=== PATIENT | male | born 1990 | race African-American/Black ===

== ENCOUNTER 2017-04-28 17:11 | Emergency (ER) | payer SELFPAY ==
[~2017-04-28] VITALS: Ht 167.6 cm; Wt 80.0 kg
[~2017-04-28 17:11] MED LIST: PREV30CA36 PO; Z.0.NO CURRENT MEDS
[2017-04-28 17:12] VITALS: BP 146/92; PULSE 77; RESP 14; TEMP 98.4; O2SAT 98
[2017-04-28] MEDS ORDERED: BACT800T5 PO (20:41)
--- NOTE | 2017-04-28 20:45 | PD ---
HPI Chief Complaint: ENT Complaint Time Seen by Provider: 20:39 Travel History International Travel<30 days: No Contact w/Intl Traveler<30days: No Traveled to known affect area: No History of Present Illness HPI 27 rib black male presents to emergency Department with complaints of a pimple in his left nostril for the past month. It has now become increasing painful started draining. Symptoms are mild. He denies any fever chills. No sore throat, ear pain, cough or congestion. PFSH Past Medical History Medical History: Denies Significant Hx Tetanus Vaccination: < 5 Years Past Surgical History Surgical History: No Previous Surgery Social History Alcohol Use: No Tobacco Use: No Substance Use: Yes (MARIJUANA DAILY) Allergies-Medications (Allergen,Severity, Reaction): Coded Allergies: No Known Allergies (Verified Allergy, Mild, 03/20/08) Reported Meds & Prescriptions Reported Meds & Active Scripts Active Bactrim DS (Sulfamethoxazole-Trimethoprim) 800-160 Mg Tab 1 Tab PO BID Prevacid (Lansoprazole) 30 Mg Capcr 30 Mg PO DAILY Reported No Current Meds (Miscellaneous Medication) Misc Review of Systems Except as stated in HPI: all other systems reviewed are Neg General / Constitutional: No: Fever, Chills Eyes: No: Blurred Vision, Photophobia HENT: No: Nosebleed, Neck Pain, Earache Cardiovascular: No: Chest Pain or Discomfort, Palpitations Respiratory: No: Cough, Shortness of Breath Gastrointestinal: No: Nausea, Vomiting Physical Exam Narrative GENERAL: Well-developed, well-nourished in no acute distress. Nontoxic appearing. HEAD: Normocephalic, atraumatic. EYES: Pupils equal round and reactive. Extraocular motions intact. No scleral icterus. No injection or drainage. ENT: TMs clear without erythema. The external auditory canals clear. Nose: Patient has a small open blister lesion to the left nostril. Posterior pharynx is pink and moist. No tonsillar edema or exudate. Uvula midline. Airway patent. NECK: Trachea midline.Supple, nontender, moves head freely. No central bony tenderness or spasm. CARDIOVASCULAR: Regular rate and rhythm without murmurs, gallops, or rubs. RESPIRATORY: Clear to auscultation. Breath sounds equal bilaterally. No wheezes , rales, or rhonchi. GASTROINTESTINAL: Abdomen soft, non-tender, nondistended. No hepato-splenomegaly , or palpable masses. No guarding. EXTREMITIES: No clubbing, cyanosis, or edema. No joint tenderness, effusion, or edema noted. BACK: Nontender without deformity or crepitance. No flank tenderness. Data Data Last Documented VS Vital Signs Date Time Temp Pulse Resp B/P (MAP) Pulse Ox O2 Delivery O2 Flow Rate FiO2 04/28/17 17:12 98.4 77 14 146/92 (110) 98 Orders Orders Ed Discharge Order (04/28/17 20:42) MDM Medical Decision Making Medical Screen Exam Complete: Yes Emergency Medical Condition: Yes Medical Record Reviewed: Yes Differential Diagnosis MDM: High Differential diagnoses: Abscess, folliculitis, cellulitis, lymphangitis, abrasion, contact dermatitis Narrative Course This is a superficial abscess left nostril Diagnosis Primary Impression: left nostril abscess Patient Instructions: General Instructions Additional Instructions: Rest. Elevation. keep clean and dry. Neosporin on Q-tips in the nose. Three Advil every 6 hours. Bactrim DS. Follow-up with a primary care doctor in one week. Return to the ER for any problems. Med/Other Pt SpecificInfo: Prescription(s) given Scripts Sulfamethoxazole-Trimethoprim (Bactrim DS) 800-160 Mg Tab 1 TAB PO BID for Infection, #20 TAB 0 Refills Prov: Kim Yeung MD 04/28/17 Disposition: 01 DISCHARGE HOME Condition: Stable J Luis Horan Apr 28, 2017 20:45
== END 2017-04-28 21:01 | disposition home or self-care (01) ==
LOC: NEPK 17:11
DX: J34.0 Abscess, furuncle and carbuncle of nose (principal)
CPT/HCPCS: 99283

== ENCOUNTER 2018-06-14 06:55 | Observation (INO) ==
[2018-06-14 07:06] VITALS: RESP 16; TEMP 98.3
--- NOTE | 2018-06-14 10:43 | ED ---
HPI General Chief Complaint: Syncope Stated Complaint: Medical Time Seen by Provider: 06/14/18 10:29 Source: patient Mode of arrival: ambulatory Limitations: no limitations History of Present Illness HPI narrative: Patient is a 28-year-old male is here today for syncopal episode last night. He states last evening he was sleeping on the couch and his girlfriend woke him up he got up went upstairs went to urinate and states he has syncopal episode while urinating. States he got suddenly dizzy and he passed out and hit the right side of his forehead on the sink and the rest of his head on the floor, and reports that the fall actually woke him up so he did not actually lose consciousness for more than 1-2 seconds. He proceeded to get up to go get into bed and fell asleep until this morning when he got up he realized he should probably get checked out as this is "not normal". He states that he feels okay today he does have a headache and pain on his right cheek he denies any confusion, slurred speech, difficulty ambulating, etc. He also reports intermittent chest tightness x 2 years that he has had ekg's for but has been discharged home. He has not followed up with cardiology. He denies any medication use he does smoke marijuana he said he did smoke yesterday but it was several hours prior to the syncopal episode he was not drinking alcohol at the time either. He does smoke cigarettes as well. MD complaint: Reports loss of consciousness Onset (ago): hour(s) -: second(s) Description of event: Reports other (Pt woke up and got in to bed) Prodromal symptoms: Reports lightheaded Witnessed: no Context: Reports after urination and illicit drug use ((+) THC USE) Injuries sustained associated with event: Reports face and head Current symptoms: Reports back to baseline History: Denies seizure disorder, previous syncopal episode, seizure disorder, history of CAD, pacemaker, AICD and family history of sudden Related Data Home Medications Medication Instructions Recorded Confirmed No Known Home Medications 06/14/18 06/14/18 Allergies Allergy/AdvReac Type Severity Reaction Status Date / Time No Known Allergies Allergy Verified 06/14/18 10:55 Review of Systems ROS: all other systems reviewed are negative [facility] Social History Social History Substance History: No History of Abuse Second Hand Smoke Exposure: No Smoking Status: Never smoker How Often Do You Have a Drink Containing Alcohol: Monthly or less Recent Travel in [facility] within the Last 8 Weeks: No Recent Out of Country Travel within the Last 8 Weeks: No Exam Narrative Exam Narrative: GENERAL: Pt awake, alert, oriented, no acute distress. He is appropriate and following directions. SKIN: Focused skin assessment warm/dry. Superficial abrasion/lac to R side of forehead, approx 1.5 cm in length. HEAD: Atraumatic. Normocephalic. EYES: Pupils equal and round. No scleral icterus. No injection or drainage. ENT: No nasal bleeding or discharge. Mucous membranes pink and moist. R ear with impacted cerumen. L ear TM pearly pink, no effusion, no erythema. NECK: Trachea midline. No JVD. CARDIOVASCULAR: Regular rate and rhythm. No murmur appreciated. RESPIRATORY: No accessory muscle use. Clear to auscultation. Breath sounds equal bilaterally. GASTROINTESTINAL: Abdomen soft, non-tender, nondistended. Hepatic and splenic margins not palpable. (+) bowel sounds all 4 quadrants. MUSCULOSKELETAL: No obvious deformities. No clubbing. No cyanosis. No edema. NEUROLOGICAL: Awake and alert. No obvious cranial nerve deficits. Motor grossly within normal limits. Normal speech. PSYCHIATRIC: Appropriate mood and affect; insight and judgment normal. Course Initial Documented Vital Signs Temperature 98.3 F 06/14/18 07:05 Pulse Rate 61 06/14/18 07:05 Respiratory Rate 16 06/14/18 07:05 Blood Pressure 140/95 H 06/14/18 07:05 Pulse Oximetry 100 06/14/18 07:05 Last Documented Vital Signs Temperature 98.3 F 06/14/18 07:05 Pulse Rate 54 L 06/14/18 16:53 Respiratory Rate 16 06/14/18 16:53 Blood Pressure 127/72 06/14/18 16:53 Pulse Oximetry 98 06/14/18 16:53 Medical Decision Making EJ Attestation EJ supervised visit: Yes Attestation: Please see mid-level provider note for full history and physical. Briefly this is a 28-year-old male who presents to the emergency department complaining of a syncopal episode last night. States that he did hit his head and a syncopal episode lasted seconds in duration. He currently feels okay and denies having these symptoms previously. He is reporting that his chest "feels funny." And also states that for the past few months he has had chest pain and shortness of breath. Family history of hypertension and he does smoke marijuana use marijuana yesterday before the symptoms began. He is slightly hypertensive on exam at 140/95, remaining vital signs stable. Head CT, chest x- ray, EKG, coags and d-dimer, troponin, orthostatic blood pressures ordered. Please see mid-level provider note for final disposition. 1700: Discussed with case finisher to transfer to [facility]. MDM Narrative Medical decision making narrative: Medical decision making narrative: During the course of the patients emergency department visit, the patients history, examination, and differential diagnosis were reviewed with the patient. The patient was placed on a color television console monitor with oximetry and frequent blood pressure monitoring. The patient was initially provided labs, iv access, ct brain and facial bones, d dimer, troponin, inr, orthostatic bp. EKG done and showing SB at a rate of 53 , no significant ST elevations or inversions. The patients laboratory studies were reviewed and remarkable for negative CBC, negative UA, mild decrease in sodium at 135, KCl of 5.4 which was rechecked and was 4.1 upon recheck. D-dimer was negative. Orthostatic bps are- 140/85 lying, 136/82 sitting, and 136/78 standing. Radiology studies were reviewed and remarkable for negative CT brain negative chest x-ray negative CT facial bones.. I discussed this with patient he is agreeable to admission for ready cardia and syncope and his heart rate has been 46-67 beats per minute. I called [facility] spoke with Dr. Briggs, who agreed to accept the patient for observation with diagnosis of sinus bradycardia with syncope. Discussed with patient he is okay with this he is awake alert oriented denies any chest pain at this time denies any dizziness. He sitting comfortably in bed eating fast food with his girlfriend, no acute distress. Medical Screen Exam Complete: Yes Emergency Medical Condition: Yes Medical Screen Exam Complete: Yes Emergency Medical Condition: Yes Differential Diagnosis Differential Diagnosis: syncope, bradycardia, seizure, adverse effects of THC, hypoglycemia, dehydration Lab Data Result diagrams: 06/14/18 11:05 06/14/18 12:42 Lab Results 11/27/18 11/27/18 11/27/18 Range/Units 11:05 11:05 11:05 WBC 6.9 (4.0-11.0) th/mm3 RBC 5.72 (4.50-5.90) mil/mm3 Hgb 15.1 (13.0-17.0) gm/dL Hct 46.0 (39.0-51.0) % MCV 80.5 (80.0-100.0) fL MCH 26.4 L (27.0-34.0) pg MCHC 32.8 (32.0-36.0) % RDW 15.6 (11.6-17.2) % Plt Count 242 (150-450) th/mm3 MPV 9.1 (7.0-11.0) fL Neut % (Auto) 57.1 (16.0-70.0) % Lymph % (Auto) 34.8 (9.0-44.0) % Trinity % (Auto) 6.1 (0.0-8.0) % Eos % (Auto) 1.6 (0.0-4.0) % Baso % (Auto) 0.4 (0.0-2.0) % Neut # (Auto) 3.9 (1.8-7.7) th/mm3 Lymph # (Auto) 2.4 (1.0-4.8) th/mm3 Trinity # (Auto) 0.4 (0.0-0.9) th/mm3 Eos # (Auto) 0.1 (0.0-0.4) th/mm3 Baso # (Auto) 0.0 (0.0-0.2) th/mm3 WBC Differential . Differential Comment Auto diff final PT (9.8-11.6) sec INR Ratio D-Dimer Quant (PE/DVT) Sodium 135 L (136-145) meq/L Potassium 5.4 H (3.5-5.1) meq/L Chloride 107 (98-107) meq/L Carbon Dioxide 24.5 (21.0-32.0) meq/L Anion Gap 4 L (5-15) meq/L BUN 12 (7-18) mg/dL Creatinine 1.10 (0.60-1.30) mg/dL Estimated GFR Greater than 89 (>89) mL/min Random Glucose 80 (74-106) mg/dL Calcium 8.9 (8.5-10.1) mg/dL Magnesium 2.0 (1.5-2.5) mg/dL Troponin I Less than 0.02 L (0.02-0.05) ng/mL Urine Color (Yellw/Straw) Urine Clarity (Clear) Urine pH (5.0-8.5) Ur Specific [place] (1.002-1.035) Urine Protein (Neg-Trace) mg/dL Urine Glucose (UA) (Negative) mg/dL Urine Ketones (Negative) mg/dL Urine Occult Blood (Negative) Urine Nitrate (Negative) Urine Bilirubin (Negative) Urine Urobilinogen (Less than 2) mg/dL Ur Leukocyte Esterase (Negative) Urine RBC (0-3) /hpf Urine WBC (0-5) /hpf Urine Mucus (Occasional) /lpf Micro UA Comment Ur Microscopic Review Urine Culture Comments Urine Opiates Screen (Neg) Ur Barbiturates Screen (Neg) Ur Amphetamines Screen (Neg) U Benzodiazepines Scrn (Neg) Urine Cocaine Screen (Neg) U Cannabinoids Screen (Neg) 06/14/18 06/14/18 06/14/18 Range/Units 11:10 11:10 12:04 WBC (4.0-11.0) th/mm3 RBC (4.50-5.90) mil/mm3 Hgb (13.0-17.0) gm/dL Hct (39.0-51.0) % MCV (80.0-100.0) fL MCH (27.0-34.0) pg MCHC (32.0-36.0) % RDW (11.6-17.2) % Plt Count (150-450) th/mm3 MPV (7.0-11.0) fL Neut % (Auto) (16.0-70.0) % Lymph % (Auto) (9.0-44.0) % Trinity % (Auto) (0.0-8.0) % Eos % (Auto) (0.0-4.0) % Baso % (Auto) (0.0-2.0) % Neut # (Auto) (1.8-7.7) th/mm3 Lymph # (Auto) (1.0-4.8) th/mm3 Trinity # (Auto) (0.0-0.9) th/mm3 Eos # (Auto) (0.0-0.4) th/mm3 Baso # (Auto) (0.0-0.2) th/mm3 WBC Differential Differential Comment PT (9.8-11.6) sec INR Ratio D-Dimer Quant (PE/DVT) Cancelled Sodium (136-145) meq/L Potassium (3.5-5.1) meq/L Chloride (98-107) meq/L Carbon Dioxide (21.0-32.0) meq/L Anion Gap (5-15) meq/L BUN (7-18) mg/dL Creatinine (0.60-1.30) mg/dL Estimated GFR (>89) mL/min Random Glucose (74-106) mg/dL Calcium (8.5-10.1) mg/dL Magnesium (1.5-2.5) mg/dL Troponin I (0.02-0.05) ng/mL Urine Color Yellow (Yellw/Straw) Urine Clarity Clear (Clear) Urine pH 7.0 (5.0-8.5) Ur Specific [place] 1.019 (1.002-1.035) Urine Protein Negative (Neg-Trace) mg/dL Urine Glucose (UA) Negative (Negative) mg/dL Urine Ketones Negative (Negative) mg/dL Urine Occult Blood Negative (Negative) Urine Nitrate Negative (Negative) Urine Bilirubin Negative (Negative) Urine Urobilinogen Less than 2 (Less than 2) mg/dL Ur Leukocyte Esterase Negative (Negative) Urine RBC Less than 1 (0-3) /hpf Urine WBC 1 (0-5) /hpf Urine Mucus Few H (Occasional) /lpf Micro UA Comment Culture not ind Ur Microscopic Review Not Reportable Urine Culture Comments Culture not ind Urine Opiates Screen Neg (Neg) Ur Barbiturates Screen Neg (Neg) Ur Amphetamines Screen Neg (Neg) U Benzodiazepines Scrn Neg (Neg) Urine Cocaine Screen Neg (Neg) U Cannabinoids Screen Pos H (Neg) 06/14/18 06/14/18 Range/Units 12:04 12:42 WBC (4.0-11.0) th/mm3 RBC (4.50-5.90) mil/mm3 Hgb (13.0-17.0) gm/dL Hct (39.0-51.0) % MCV (80.0-100.0) fL MCH (27.0-34.0) pg MCHC (32.0-36.0) % RDW (11.6-17.2) % Plt Count (150-450) th/mm3 MPV (7.0-11.0) fL Neut % (Auto) (16.0-70.0) % Lymph % (Auto) (9.0-44.0) % Trinity % (Auto) (0.0-8.0) % Eos % (Auto) (0.0-4.0) % Baso % (Auto) (0.0-2.0) % Neut # (Auto) (1.8-7.7) th/mm3 Lymph # (Auto) (1.0-4.8) th/mm3 Trinity # (Auto) (0.0-0.9) th/mm3 Eos # (Auto) (0.0-0.4) th/mm3 Baso # (Auto) (0.0-0.2) th/mm3 WBC Differential Differential Comment PT 11.0 (9.8-11.6) sec INR 1.1 Ratio D-Dimer Quant (PE/DVT) 0.34 Sodium (136-145) meq/L Potassium 4.1 D (3.5-5.1) meq/L Chloride (98-107) meq/L Carbon Dioxide (21.0-32.0) meq/L Anion Gap (5-15) meq/L BUN (7-18) mg/dL Creatinine (0.60-1.30) mg/dL Estimated GFR (>89) mL/min Random Glucose (74-106) mg/dL Calcium (8.5-10.1) mg/dL Magnesium (1.5-2.5) mg/dL Troponin I (0.02-0.05) ng/mL Urine Color (Yellw/Straw) Urine Clarity (Clear) Urine pH (5.0-8.5) Ur Specific [place] (1.002-1.035) Urine Protein (Neg-Trace) mg/dL Urine Glucose (UA) (Negative) mg/dL Urine Ketones (Negative) mg/dL Urine Occult Blood (Negative) Urine Nitrate (Negative) Urine Bilirubin (Negative) Urine Urobilinogen (Less than 2) mg/dL Ur Leukocyte Esterase (Negative) Urine RBC (0-3) /hpf Urine WBC (0-5) /hpf Urine Mucus (Occasional) /lpf Micro UA Comment Ur Microscopic Review Urine Culture Comments Urine Opiates Screen (Neg) Ur Barbiturates Screen (Neg) Ur Amphetamines Screen (Neg) U Benzodiazepines Scrn (Neg) Urine Cocaine Screen (Neg) U Cannabinoids Screen (Neg) Imaging Data Radiologist's impression: Chest X-Ray 06/14/18 10:43 CONCLUSION: Negative examination. Face CT 06/14/18 10:43 CONCLUSION: Negative CT Facial Bones non contrast. Head CT 06/14/18 10:43 CONCLUSION: 1. Negative CT Head non contrast. Discharge Plan Discharge Disposition Patient Disposition: 30 Still Patient Discharge Condition Condition: Stable Discharge Order Discharge Orders: AMA Discharge (Routine); Ordered 06/14/18 Ordered By: Mary Castaneda Physicians Team ED Provider: Mary Castaneda ED Midlevel Provider: Diamond Durand Primary Care Provider: Primary Care Bailey Garcia Attending Provider: Greg Briggs Status ED Status: Left Department Discharge Information Discharge Date/Time: 06/14/18 17:45
[2018-06-14 11:22] LABS: Baso % (Auto) 0.4 % (0.0-2.0); Eos # (Auto) 0.1 th/mm3 (0.0-0.4); Eos % (Auto) 1.6 % (0.0-4.0); Hemoglobin 15.1 gm/dL (13.0-17.0); Lymph # (Auto) 2.4 th/mm3 (1.0-4.8); Lymph % (Auto) 34.8 % (9.0-44.0); Mean Corpuscular HGB Conc 32.8 % (32.0-36.0); Mean Corpuscular Hemoglobin 26.4 pg (27.0-34.0); Mean Corpuscular Volume 80.5 fL (80.0-100.0); Mean Platelet Volume 9.1 fL (7.0-11.0); Mono # (Auto) 0.4 th/mm3 (0.0-0.9); Mono % (Auto) 6.1 % (0.0-8.0); Neut # (Auto) 3.9 th/mm3 (1.8-7.7); Neut % (Auto) 57.1 % (16.0-70.0); Platelet Count 242 th/mm3 (150-450); Red Blood Count 5.72 mil/mm3 (4.50-5.90); Red Cell Distribution Width 15.6 % (11.6-17.2); White Blood Count 6.9 th/mm3 (4.0-11.0)
--- NOTE | 2018-06-14 11:31 | XR ---
EXAM DATE: 06/14/2018 11:24 AM EST AGE/SEX: 28 years / Male INDICATIONS: . Chest pain and shortness of breath since last night. CLINICAL DATA: This is the patient's initial encounter. Patient reports that signs and symptoms have been present for 1 day and indicates a pain score of 3/10. MEDICAL/SURGICAL HISTORY: None. None. COMPARISON: No prior exams available for comparison. FINDINGS: PA and lateral views of the chest demonstrate the lungs to be symmetrically aerated without evidence of mass, infiltrate or effusion. The cardiomediastinal contours are unremarkable. Osseous structures are intact. CONCLUSION: Negative examination. Electronically signed by: Cruzito Moreno MD 06/14/2018 11:30 AM EST
--- NOTE | 2018-06-14 11:35 | CT ---
EXAM DATE: 06/14/2018 11:32 AM EST AGE/SEX: 28 years / Male INDICATIONS: Patient passed out last night and hit right forehead CLINICAL DATA: This is the patient's initial encounter. Patient reports that signs and symptoms have been present for 1 day and indicates a pain score of 2/10. MEDICAL/SURGICAL HISTORY: None. None. RADIATION DOSE: 37.71 CTDI (mGy) COMPARISON: No prior exams available for comparison. TECHNIQUE: CT of the head without contrast. Using automated exposure control and adjustment of the mA and/or kV according to patient size, radiation dose was kept as low as reasonably achievable to ob tain optimal diagnostic quality images. DICOM format image data is available electronically for revi ew and comparison. FINDINGS: Cerebrum: The ventricles are normal for age. No evidence of midline shift, mass lesion, hemorrhage or acute infarction. No extraaxial fluid collections are seen. Posterior Fossa: The cerebellum and brainstem are intact. The 4th ventricle is midline. The cerebe llopontine angle is unremarkable. Extracranial: The visualized portion of the orbits is intact. Skull: The calvaria is intact. No evidence of skull fracture. CONCLUSION: 1. Negative CT Head non contrast. Electronically signed by: Jag Oviedo MD 06/14/2018 11:34 AM EST
[2018-06-14 11:42] LABS: Bilirubin,Urine Negative (Negative); Clarity,Urine Clear (Clear); Color,Urine Yellow (Yellw/Straw); Glucose,Urine (UA) Negative (Negative); Leukocyte Esterase,Urine Negative (Negative); Mucus,Urine Few /lpf (Occasional); Nitrite,Urine Negative (Negative); Specific Gravity,Urine 1.019 (1.002-1.035)
--- NOTE | 2018-06-14 11:47 | CT ---
EXAM DATE: 06/14/2018 11:40 AM EST AGE/SEX: 28 years / Male INDICATIONS: Patient passed out last night and hit right forehead CLINICAL DATA: This is the patient's initial encounter. Patient reports that signs and symptoms have been present for 1 day and indicates a pain score of 2/10. MEDICAL/SURGICAL HISTORY: None. None. RADIATION DOSE: 61.86 CTDI (mGy) COMPARISON: No prior exams available for comparison. TECHNIQUE: Contiguous images in the axial and coronal planes were obtained using helical multirow de tector technique. Using automated exposure control and adjustment of the mA and/or kV according to p atient size, radiation dose was kept as low as reasonably achievable to obtain optimal diagnostic shiloh lity images. DICOM format image data is available electronically for review and comparison. FINDINGS: Orbits: The orbital and infraorbital osseous structures are intact. The retroconal structures have a normal configuration. No radiopaque foreign bodies are seen. Nasal Bone: The nasal bone and maxillary spine are intact. Zygomatic Arches: Symmetric without evidence of fracture. Sinuses: The maxillary, ethmoid, and frontal sinuses are intact. No air-fluid levels seen. Nasal Cavity: The nasal septum is intact and midline. The lacrimal ducts are intact. Soft Tissues: No radiopaque foreign bodies seen. Mild right frontal soft tissue swelling without rajendra dence of underlying fracture.. Intracranial: No intracranial air seen. Cribriform Plate: Grossly intact. CONCLUSION: Negative CT Facial Bones non contrast. Electronically signed by: Cruzito Moreno MD 06/14/2018 11:46 AM EST
[2018-06-14 12:12] LABS: Anion Gap 4 meq/L (5-15); Blood Urea Nitrogen 12 mg/dL (7-18); Calcium 8.9 mg/dL (8.5-10.1); Carbon Dioxide 24.5 meq/L (21.0-32.0); Chloride 107 meq/L (98-107); Glomerular Filtration Rate Greater Than 89 mL/min (>89); Glucose,Random 80 mg/dL (74-106); Sodium 135 meq/L (136-145)
[2018-06-14 12:15] LABS: Potassium 5.4 meq/L (3.5-5.1)
[2018-06-14 12:34] LABS: INR 1.1 Ratio
[2018-06-14 12:39] LABS: D-Dimer 0.34 mg/L FEU (0.00-0.50)
--- NOTE | 2018-06-14 13:55 | P.HPFP ---
History of Present Illness Primary Care Physician: No Primary Care Physician <PercymelvinaMiladisAshwin R - 06/16/18 12:58> No Primary Care Physician <Greg Briggs 06/14/18 13:55> History of Present Illness: He is a 28 year old male with no significant past medical history who presented with an episode of syncope. Kiefer lightheaded walking up the stairs, went to go urinate and passed out. He thinks it was only a couple seconds. He did hit his head. He reports he woke up immediately after hitting his head. He does not continue to have headaches, change in vision, lightheadedness or dizziness. He denies nausea, vomiting, fever, chills, left arm or jaw pain, back pain, shortness of breath, abdominal pain, change in bowel or bladder habits, weakness, numbness or tingling in arms or legs. He reports he has chest tightness all the time, throughout the day. He often has the feeling that his heart is beating to slow. This has been looked into, but he does not currently have a transport nurse. He does not have a PCP. Reports PO intake for the past couple of days. 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 no lightheadedness or dizziness at this point. no dysuria or increased frequency. No emesis or nausea Past Medical history: Reports chronic chest tightness for years, never diagnosed , has had negative workups in the past. Otherwise denies medical history Surgical history: Denies surgical history. Family History: No cardiac problems in the family. HTN in his mother Social: Occasional alcohol use, no tobacco use, daily MJ use, no history of IVDA <Greg Briggs - 06/14/18 16:54> - Diagnosis (1) Syncope <Ashwin Napoles Gualberto Cha 06/16/18 12:58> (1) Syncope <Greg Briggs 06/14/18 16:46> Review of Systems All other systems reviewed negative except as stated in HPI <Greg Briggs Starla 06/14/18 16:54> PMFSH - History History Provided By: Patient <Greg Briggs 06/14/18 13:55> - Medical History Medical History: Medical History (Last Reviewed 04/04/18 @ 01:41 by Nadeen Curry MD) Patient denies medical problems <PercyestellaAshwin taylor Starla 06/16/18 12:58> Medical History (Last Reviewed 04/04/18 @ 01:41 by Nadeen Curry MD) Patient denies medical problems <Greg Briggs - 06/14/18 13:55> - Surgical History Surgical History: Surgical History (Last Reviewed 04/04/18 @ 01:41 by Nadeen Curry MD) No history of previous surgery <PercymelvinaAshwin Gualberto Starla 06/16/18 12:58> Surgical History (Last Reviewed 04/04/18 @ 01:41 by Nadeen Curry MD) No history of previous surgery <MalakristaGreg Perez Starla 06/14/18 13:55> - Tobacco History Second Hand Smoke Exposure: No <MalakristaGreg Perez 06/14/18 13:55> Tobacco Use In Past 30 Days: No <MalakristaGreg Perez Starla 06/14/18 13:55> Smoking Status: Never smoker <BrigitteGreg Perez 06/14/18 13:55> - Alcohol History How Often Do You Have a Drink Containing Alcohol: Monthly or less <MalakristaGreg - 06/14/18 13:55> - Substance Use History Substance History: No History of Abuse <MalakristaGreg Perez - 06/14/18 13:55> - Travel History Recent Travel in the [facility] Within the Last 8 Weeks: No <MalakristaGreg Perez Starla 06/14 13:55> Recent Travel Out of the Country Within the Last 8 Weeks: No <MalakristaGreg Perez 06/14/18 13:55> - Immunization History Tetanus Immunization: <5 Years <MalakristaGreg Perez Starla 06/14/18 13:55> Medications and Allergies Allergies Allergy/AdvReac Type Severity Reaction Status Date / Time No Known Allergies Allergy Verified 06/14/18 10:55 <PercymelvinaAshwin Burciaga Starla 06/16/18 12:58> Home Medications Medication Instructions Recorded Confirmed Type No Known Home Medications 06/14/18 06/14/18 History <PercyAshwin hein 06/16/18 12:58> Active Medications: Active Medications Acetaminophen (Tylenol) 650 mg PO Q4H PRN PRN Reason: Temp > 100.4 Enoxaparin Sodium (Lovenox Inj) 30 mg SQ Q24H YURY Ondansetron HCl (Zofran Inj) 4 mg IV.PUSH Q6H PRN PRN Reason: NAUSEA OR VOMITING Sodium Chloride (Ns Flush) 2 ml IV.FLUSH BID YURY Sodium Chloride (Ns Flush) 2 ml IV.FLUSH PRN PRN PRN Reason: FLUSH AFTER USING IV ACCESS <Ashwin Napoles - 06/16/18 12:58> Exam Vital signs: Vital Signs 06/14/18 07:05 06/14/18 10:40 06/14/18 12:07 Temperature 98.3 F Pulse Rate 61 60 Respiratory Rate 16 16 Blood Pressure 140/95 H 127/61 Pulse Oximetry 100 100 100 06/14/18 12:08 06/14/18 13:35 Temperature Pulse Rate 52 L 52 L Respiratory Rate Blood Pressure Pulse Oximetry Intake & Output 06/13/18 06/14/18 06/14/18 18:59 06:59 18:59 Weight 74.843 kg <Greg Briggs 06/14/18 13:55> Narrative: GENERAL: Laying in bed, no acute distress SKIN: Warm and dry. HEAD: Atraumatic. Normocephalic. EYES: Pupils equal and round. No scleral icterus. No injection or drainage. ENT: No nasal bleeding or discharge. Mucous membranes pink and moist. NECK: Trachea midline. No JVD. CARDIOVASCULAR: Regular rate and rhythm. RESPIRATORY: No accessory muscle use. Clear to auscultation. Breath sounds equal bilaterally. GASTROINTESTINAL: Abdomen soft, non-tender, nondistended. Hepatic and splenic margins not palpable. MUSCULOSKELETAL: Extremities without clubbing, cyanosis, or edema. No obvious deformities. NEUROLOGICAL: Awake and alert. CN II through XII intact. Motor grossly within normal limits. Five out of 5 muscle strength in the arms and legs. Normal speech. <Greg Briggs 06/14/18 16:54> Results - Labs Result diagrams: 06/14/18 11:05 06/14/18 12:42 <Ashwin Napoles 06/16/18 12:58> Abnormal lab results 06/14/18 06/14/18 06/14/18 Range/Units 11:05 11:05 11:10 MCH 26.4 L (27.0-34.0) pg Sodium 135 L (136-145) meq/L Potassium 5.4 H (3.5-5.1) meq/L Anion Gap 4 L (5-15) meq/L Troponin I Less than 0.02 L (0.02-0.05) ng/mL Urine Mucus Few H (Occasional) /lpf Short CBC 06/14/18 Range/Units 11:05 WBC 6.9 (4.0-11.0) th/mm3 Hgb 15.1 (13.0-17.0) gm/dL Hct 46.0 (39.0-51.0) % Plt Count 242 (150-450) th/mm3 BMP 06/14/18 06/14/18 11:05 12:42 Sodium 135 L Potassium 5.4 H 4.1 D Chloride 107 Carbon Dioxide 24.5 BUN 12 Creatinine 1.10 Calcium 8.9 Cardiac Enzymes 06/14/18 Range/Units 11:05 Troponin I Less than 0.02 L (0.02-0.05) ng/mL Urine 06/14/18 Range/Units 11:10 Urine Color Yellow (Yellw/Straw) Urine Clarity Clear (Clear) Urine pH 7.0 (5.0-8.5) Ur Specific [place] 1.019 (1.002-1.035) Urine Protein Negative (Neg-Trace) mg/dL Urine Glucose (UA) Negative (Negative) mg/dL <Greg Briggs 06/14/18 13:55> - Imaging Impressions Chest X-Ray 06/14/18 10:43 CONCLUSION: Negative examination. Face CT 06/14/18 10:43 CONCLUSION: Negative CT Facial Bones non contrast. Head CT 06/14/18 10:43 CONCLUSION: 1. Negative CT Head non contrast. <Greg Briggs 06/14/18 13:55> Caprini VTE Risk Assessment Rasheedrini VTE Risk Assessment: No/Low Risk (score <= 1) <Greg Briggs 16:54> Will Risk Assessment Model: Point Value = 1 Point Value = 2 Point Value = 3 Point Value = 5 Age 41-60 Minor surgery BMI > 25 kg/m2 Swollen legs Varicose veins or History of unexplained or recurrent spontaneous Oral contraceptives or hormone replacement Sepsis (< 1 month) Serious lung disease, including pneumonia (< 1 month) Abnormal pulmonary function Acute myocardial infarction Congestive heart failure (< 1 month) History of inflammatory bowel disease Medical patient at bed rest Age 61-74 Arthroscopic surgery Major open surgery (> 45 min) Laparoscopic surgery (> 45 min) Malignancy Confined to bed (> 72 hours) Immobilizing plaster cast Central venous access Age >= 75 History of VTE Family history of VTE Factor V Leiden Prothrombin [id number] Lupus anticoagulant Anticardiolipin antibodies Elevated serum homocysteine Heparin-induced thrombocytopenia Other congenital or acquired thrombophilia Stroke (< 1 month) Elective arthroplasty Hip, pelvis, or leg fracture Acute spinal cord injury (< 1 month) <Ashwin Napoles - 06/16/18 12:58> Point Value = 1 Point Value = 2 Point Value = 3 Point Value = 5 Age 41-60 Minor surgery BMI > 25 kg/m2 Swollen legs Varicose veins or History of unexplained or recurrent spontaneous Oral contraceptives or hormone replacement Sepsis (< 1 month) Serious lung disease, including pneumonia (< 1 month) Abnormal pulmonary function Acute myocardial infarction Congestive heart failure (< 1 month) History of inflammatory bowel disease Medical patient at bed rest Age 61-74 Arthroscopic surgery Major open surgery (> 45 min) Laparoscopic surgery (> 45 min) Malignancy Confined to bed (> 72 hours) Immobilizing plaster cast Central venous access Age >= 75 History of VTE Family history of VTE Factor V Leiden Prothrombin [id number] Lupus anticoagulant Anticardiolipin antibodies Elevated serum homocysteine Heparin-induced thrombocytopenia Other congenital or acquired thrombophilia Stroke (< 1 month) Elective arthroplasty Hip, pelvis, or leg fracture Acute spinal cord injury (< 1 month) <Greg Briggs - 06/14/18 13:55> Prophylaxis Regimen: Total Risk Factor Score Risk Level Prophylaxis Regimen 0-1 Low Early ambulation 2 Moderate Order ONE of the following: *Sequential Compression Device (SCD) *Heparin 5000 units SQ BID 3-4 Higher Order ONE of the following medications: *Heparin 5000 units SQ TID *Enoxaparin/Lovenox 40 mg SQ daily (WT < 150 kg, CrCl > 30 mL/min) *Enoxaparin/Lovenox 30 mg SQ daily (WT < 150 kg, CrCl > 10-29 mL/min) *Enoxaparin/Lovenox 30 mg SQ BID (WT < 150 kg, CrCl > 30 mL/min) AND/OR *Sequential Compression Device (SCD) 5 or more Highest Order ONE of the following medications: *Heparin 5000 units SQ TID (Preferred with Epidurals) *Enoxaparin/Lovenox 40 mg SQ daily (WT < 150 kg, CrCl > 30 mL/min) *Enoxaparin/Lovenox 30 mg SQ daily (WT < 150 kg, CrCl > 10-29 mL/min) *Enoxaparin/Lovenox 30 mg SQ BID (WT < 150 kg, CrCl > 30 mL/min) AND *Sequential Compression Device (SCD) <Ashwin Napoles 06/16/18 12:58> Total Risk Factor Score Risk Level Prophylaxis Regimen 0-1 Low Early ambulation 2 Moderate Order ONE of the following: *Sequential Compression Device (SCD) *Heparin 5000 units SQ BID 3-4 Higher Order ONE of the following medications: *Heparin 5000 units SQ TID *Enoxaparin/Lovenox 40 mg SQ daily (WT < 150 kg, CrCl > 30 mL/min) *Enoxaparin/Lovenox 30 mg SQ daily (WT < 150 kg, CrCl > 10-29 mL/min) *Enoxaparin/Lovenox 30 mg SQ BID (WT < 150 kg, CrCl > 30 mL/min) AND/OR *Sequential Compression Device (SCD) 5 or more Highest Order ONE of the following medications: *Heparin 5000 units SQ TID (Preferred with Epidurals) *Enoxaparin/Lovenox 40 mg SQ daily (WT < 150 kg, CrCl > 30 mL/min) *Enoxaparin/Lovenox 30 mg SQ daily (WT < 150 kg, CrCl > 10-29 mL/min) *Enoxaparin/Lovenox 30 mg SQ BID (WT < 150 kg, CrCl > 30 mL/min) AND *Sequential Compression Device (SCD) <Greg Briggs 06/14/18 13:55> Assessment and Plan - Assessment (1) Syncope Code(s): R55 - Syncope and collapse Status: Acute <Ashwin Napoles 06/16/18 12:58> (1) Syncope Code(s): R55 - Syncope and collapse Status: Acute <Greg Briggs 06/14/18 16:46> - Assessment and Plan 28-year-old male with chronic chest tightness presenting status post syncope. Negative d-dimer, troponin. Patient was to be observed overnight to follow-up any potential cardiac abnormalities, however admitting team was called and notified the patient was being transferred to [facility] and has already been accepted by the hospitalist there. <Greg Briggs - 06/14/18 16:54> - Attending Attestation I agree with the plan of care as discussed with me and documented in the resident note. Ashwin Napoles MD <Ashwin Napoles - 06/16/18 12:58>
[2018-06-14] MEDS ORDERED: Acetaminophen 325 MG Tablet PO PRN (13:59)
[2018-06-14] MEDS ORDERED: Sod Chloride 0.9% Inj 1,000 ML IV.SIG SCH (14:01)
[2018-06-14 14:59] VITALS: O2SAT 98
[2018-06-14] MEDS ORDERED: Sodium Chloride 0.9% 2 ML Flush PRN IV.FLUSH (15:20)
[2018-06-14] MEDS ORDERED: Enoxaparin Inj 30 MG/0.3 ML Syringe SQ SCH (16:00)
[2018-06-14 16:54] VITALS: BP 127/72; PULSE 54
--- NOTE | 2018-06-14 19:54 | ECHRPT ---
Indication: SYNCOPE CONCLUSIONS Wall thickness is normal. Normal left ventricular size. The left ventricular systolic function is low normal with an estimated ejection fraction in the rang e of 50- 55%. The estimated pulmonary arterial pressure is 33 mmHg. There is mild tricuspid valve regurgitation. BP: / HR: Rhythm: MEASUREMENTS (Male / Female) Normal Values Technical Quality:Excellent 2D ECHO LV Diastolic Diameter PLAX 4.8 cm 4.2 - 5.9 / 3.9 - 5.3 cm LV Systolic Diameter PLAX 3.2 cm IVS Diastolic Thickness 0.9 cm 0.6 - 1.0 / 0.6 - 0.9 cm LVPW Diastolic Thickness 1.0 cm 0.6 - 1.0 / 0.6 - 0.9 cm LV Relative Wall Thickness 0.4 RV Internal Dim ED PLAX 2.2 cm LVOT Diameter 2.1 cm Aortic Root Diameter 2.7 cm LA Systolic Diameter LX 3.1 cm 3.0 - 4.0 / 2.7 - 3.8 cm LV Ejection Fraction MOD BP 53.9 % >= 55 % LV Ejection Fraction MOD 4C 59.5 % LV Ejection Fraction 4C AL 60.3 % LV Ejection Fraction MOD 2C 45.9 % LV Ejection Fraction 2C AL 47.3 % M-MODE Aortic Root Diameter MM 3.5 cm LA Systolic Diameter MM 3.7 cm LA Ao Ratio MM 1.1 AV Cusp Separation MM 1.9 cm DOPPLER AV Peak Velocity 115.0 cm/s AV Peak Gradient 5.3 mmHg LVOT Peak Velocity 82.9 cm/s LVOT Peak Gradient 2.7 mmHg AV Area Cont Eq pk 2.5 cm Mitral E Point Velocity 86.4 cm/s Mitral A Point Velocity 51.8 cm/s Mitral E to A Ratio 1.7 LV E' Lateral Velocity 12.3 cm/s Mitral E to LV E' Lateral Ratio 7.0 LV E' Septal Velocity 7.3 cm/s Mitral E to LV E' Septal Ratio 11.8 TR Peak Velocity 238.0 cm/s TR Peak Gradient 22.7 mmHg Right Atrial Pressure 10.0 mmHg Pulmonary Artery Systolic Pressu 32.7 mmHg Right Ventricular Systolic Press 32.7 mmHg PV Peak Velocity 97.7 cm/s PV Peak Gradient 3.8 mmHg FINDINGS LEFT VENTRICLE Wall thickness is normal. Normal left ventricular size. The left ventricular systolic function is low normal with an estimated ejection fraction in the rang e of 50- 55%. No regional wall motion abnormalities are present. RIGHT VENTRICLE Normal right ventricular size and systolic function. LEFT ATRIUM The left atrial size is normal. The left atrial appendage appears to be morphologically normal. RIGHT ATRIUM The right atrial size is normal. ATRIAL SEPTUM Normal atrial septal thickness without atrial level shunting by limited color doppler interrogation. AORTA The aortic root and proximal ascending aorta are normal in size on limited imaging. MITRAL VALVE Structurally normal mitral valve. No mitral valve stenosis or regurgitation. AORTIC VALVE Trileaflet aortic valve. No aortic valve stenosis or regurgitation. TRICUSPID VALVE The estimated pulmonary arterial pressure is 33 mmHg. There is mild tricuspid valve regurgitation. PULMONARY VALVE No pulmonary valve regurgitation or stenosis. VESSELS The inferior vena cava is normal in size. PERICARDIUM No pericardial effusion. Bill Santamaria (Electronically Signed) Final Date:14 June 2018 19:53
[2018-06-14] MEDS ORDERED: Sodium Chloride 0.9% 2 ML Flush BID IV.FLUSH SCH (21:00)
[2018-06-14 23:46] LABS: Amphetamine Screen,Urine Neg (Neg); Barbiturate Screen,Urine Neg (Neg); Cannabinoid Screen,Urine Pos (Neg); Cocaine Screen,Urine Neg (Neg)
[2018-06-14 23:49] LABS: Opiate Screen,Urine Neg (Neg)
--- NOTE | 2018-06-15 12:48 | ECG ---
Date Performed: 06/14/2018 Time Performed: 11:04:59 PTAGE: 28 years EKG: SINUS BRADYCARDIA WITH OCCASIONAL SUPRAVENTRICULAR PREMATURE COMPLEXES BORDERLINE ECG NO PREVIOUS TRACING DOCTOR: Mike Arriaga Interpretating Date/Time 06/15/2018 12:46:20
== END 2018-06-14 17:45 | disposition left against medical advice (07) ==
LOC: NEPD 06:55 → NEDA 06:55
PROVIDERS: ADMIT Family Medicine; ATTEND Family Medicine